=== PATIENT | male | born 1985 | race Two or more races ===

== ENCOUNTER 2025-08-18 15:42 | Emergency (ER) | payer MEDICAID, OTHER ==
[~2025-08-18] VITALS: Ht 172.7 cm; Wt 181.8 kg
[2025-08-18 16:30] VITALS: BP 124/67; PULSE 100; RESP 20; TEMP 97.6; O2SAT 99
[2025-08-18] MEDS ORDERED: SODIUM CHLORIDE 0.9% 1,000 ML IV ONE (16:45)
--- NOTE | 2025-08-18 17:04 | DVH ---
CHEST RADIOGRAPH Indication: Shortness of breath Technique: Single frontal view of the chest was obtained COMPARISON: None FINDINGS: Lines and Tubes: None Lungs: Low lung volumes. Congestion. Pleura: No effusion. No pneumothorax. Cardiomediastinal contours: Cardiomegaly. Bones: Unremarkable IMPRESSION: Cardiomegaly and pulmonary vascular congestion.
--- NOTE | 2025-08-18 17:32 | ED.PDOC ---
History of present illness HPI Comments This patient is a severely morbidly obese 40-year-old male who arrives [facility] due to complaints of hyperglycemia. Patient arrives via EMS with information of a 450+ blood glucose. Patient has a history of psychosis that appears to be bipolar schizophrenia. Patient denies any fever nausea or vomiting. Patient was tachycardic at arrival. Initial chief complaint included SI, but when I inquired as to the patient's desire to harm himself, patient denied any SI or HI. 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 Allergies: Coded Allergies: NO KNOWN ALLERGIES (Unverified , 08/18/25) Information Source: Patient, Emergency Med Personnel Mode of Arrival: EMS Timing: Hours Duration: Since onset Prehospital treatment: None [place]: None History of: Diabetes, Other (Psychosis which appears to be bipolar schizophrenia) Modifying factors: Nothing Associated signs and symptoms: None Past Medical History PAST MEDICAL HISTORY: DM, Schizophrenia Surgical History: Denies all surgeries Family History Family History: Reviewed,noncontributory to illness, No family hx of Cancer, No family hx of DM, No family hx of Heart ayden, No family hx of HTN, No family hx ofKidney ayden, No family hx of Liver ayden, No family hx of Lung ayden, No family hx of Stroke Social History Smoker: Non-Smoker Alcohol: Denies ETOH Use Drugs: Denies Drug Use Lives In: Assisted Care Constitutional: denies: chills, diaphoresis, fatigue, fever, malaise, sweats, weakness, others EENTM: denies: blurred vision, double vision, ear bleeding, ear discharge, ear drainage, ear pain, ear ringing, eye pain, eye redness, hearing loss, mouth p ain, mouth swelling, nasal discharge, nose bleeding, nose congestion, nose pain, photophobia, tearing, throat pain, throat swelling, voice changes, others Respiratory: denies: cough, hemoptysis, orthopnea, SOB at rest, shortness of br eath, SOB with excertion, stridor, wheezing, others Cardiovascular: denies: chest pain, dizzy spells, diaphoresis, Dyspnea on exertion, edema, irregular heart beat, left arm pain, lightheadedness, palpitations, PND, syncope, others Gastrointestinal: denies: abdomen distended, abdominal pain, blood streaked bowels, constipated, diarrhea, dysphagia, difficulty swallowing, hematemesis, melena, nausea, poor appetite, poor fluid intake, rectal bleeding, rectal pain, vomiting, others Genitourinary: denies: burning, dysuria, flank pain, frequency, hematuria, incontinence, penile discharge, penile sore, pain, testicle pain, testicle swelling, urgency, others Neurological: denies: dizziness, fainting, headache, left sided numbness, left sided weakness, numbness, paresthesia, pre-existing deficit, right sided numbness, right sided weakness, seizure, speech problems, tingling, tremors, weakness, others Musculoskeletal: denies: back pain, gout, joint pain, joint swelling, muscle pain, muscle stiffness, neck pain, others Integumetry: denies: bruises, change in color, change in hair/nails, dryness, laceration, lesions, lumps, rash, wounds, others Allergic/Immunocompromised: denies: Difficulty Healing, Frequent Infections, Hives, Itching, others Hematologic/Lymphatic: denies: anemia, blood clots, easy bleeding, easy bruising, swollen glands, others Endocrine: denies: excessive hunger, excessive sweating, excessive thirst, excessive urination, flushing, intolerance to cold, intolerance to heat, unexplained weight gain, unexplained weight loss, others Psychiatric: denies: anxiety, bipolar disorder, depression, hopeless, panic disorder, schizophrenia, sleepless, suicidal, others Unable to Obtain due to: Other (Patient has a history of psychosis) Physical Exam General Appearance: No Apparent Distress (Patient did not appear to be in distress at time of evaluation.), Obese HEENT: Normal ENT Inspection, Pharynx Normal, TMs Normal Neck: Full Range of Motion, Non-Tender, Normal, Normal Inspection Respiratory: Chest Non-Tender, Lungs Clear, No Accessory Muscle Use, No Respiratory Distress, Normal Breath Sounds Cardiovascular: No Edema, No JVD, No Murmur, No Gallop, Normal Peripheral Pulses, Regular Rate/Rhythm Breast Exam: Deferred Gastrointestinal: No Organomegaly, Non Tender, No Pulsatile Mass, Normal Bowel Sounds, Soft Genitalia: Deferred Pelvic: Deferred Rectal: Deferred Extremities: Normal capillary refill, Non-tender Neurologic: Alert Cerebellar Function: NOT DONE Reflexes: NOT DONE Skin: Dry, Normal Color, Warm Lymphatic: No Adenopathy Was a procedure done? Was a procedure done?: No Differential Diagnosis (DM) Differential Diagnosis: DKA, Electrolyte Abnormality, Hyperglycemia, Hyperosmolar State, Hypoglycemia X-Ray, Labs, Meds, VS Vital Signs Date Time Temp Pulse Resp B/P (MAP) Pulse Ox O2 Delivery O2 Flow Rate FiO2 08/18/25 15:44 98.7 116 16 112/63 99 98.7 X-Ray, Labs, Meds, VS Comment Subsequent to IV placement, patient became combative and removed his ID. Charge nurse Estelle was notified and we consulted with the patient. We attempted multiple times to contact [facility] to see if the patient had any medical decision making assignment. Without the ability to confirm any medical decision making, and the patient being combative with staff as well as denying any SI or HI, patient was allowed to leave the facility. We attempted to ascertain an AMA form prior to the patient leaving. Time of 1ST Reevaluation: 17:30 Reevaluation 1ST: Unchanged Consultation: PCP Patient Education/Counseling: Diagnosis, Treatment Family Education/Counseling: Diagnosis, Treatment SEPSIS Sepsis Screen Date sepsis recognized/suspect: Aug 18, 2025 Time Sepsis recognized/suspect: 1543 Recent Procedure: No On Antibiotic Therapy: No Respiratory Rate >20: No Heart Rate >90: Yes Temp<36 C (96.8 F) or >38.3 C: No SBP <90 or MAP <65 mmHG: No New Acute Mental Status Change: No Is the patient on CPAP, BIPAP,: No Physician Orders Troponin-I Hs (08/18/25 16:36) Complete Blood Count (08/18/25 16:36) B-Type Natriuretic Peptide (08/18/25 16:36) Chest Portable (08/18/25 16:36) Urinalysis (08/18/25 16:36) Basic Metabolic Panel (08/18/25 16:36) Heplock Iv (08/18/25 16:36) Electrocardigram (08/18/25 16:36) Troponin-I Hs (08/18/25 17:36) Troponin-I Hs (08/18/25 19:36) Continuous Ekg Monitoring 08,12,16,20,00,04 (08/18/25 16:36) Sodium Chloride 0.9% (08/18/25 16:45) Accucheck (08/18/25 16:36) Vital Signs Date Time Temp Pulse Resp B/P (MAP) Pulse Ox O2 Delivery O2 Flow Rate FiO2 08/18/25 15:44 98.7 116 16 112/63 99 98.7 Departure 1 Departure Time of Disposition: 17:31 Impression: Primary Impression: Hyperglycemia due to diabetes mellitus Disposition: LEFT AGAINST MEDICAL ADVICE Condition: Poor Discharged With: Self Critical Care Note Critical Care Time?: No Stability Stability form required: No Heart Score Heart Score: Heart Score Response (Comments) Value History N/A 0 EKG N/A 0 Age N/A 0 Risk Factors N/A 0 Troponin N/A 0 Total 0 EBER COUCH PAC Aug 18, 2025 17:32
== END 2025-08-18 17:27 | disposition left against medical advice (07) ==
LOC: ER 15:42 → EDBD 15:42 → ER 17:27
DX: E11.65 Type 2 diabetes mellitus with hyperglycemia (principal); F20.9 Schizophrenia, unspecified; E66.01 Morbid (severe) obesity due to excess calories; Z68.44 Body mass index [BMI] 60.0-69.9, adult
CPT/HCPCS: 71045; 82947

== ENCOUNTER 2025-08-27 22:39 | Emergency (ER) | payer MEDICAID ==
[~2025-08-27] VITALS: Ht 172.7 cm; Wt 183.0 kg
[2025-08-27 22:39] VITALS: BP 136/83; PULSE 123; RESP 20; TEMP 98.2; O2SAT 99
[2025-08-28 01:50] LABS: Anion Gap 10 (5-15); Carbon Dioxide 26 mmol/L (20-31); Chloride 100 mmol/L (98-107); Hematocrit 38.9 % (41.0-53.0); Hemoglobin 12.4 g/dL (13.5-17.5); Mean Corpuscular Hemoglobin 25.6 pg (28.0-32.0); Mean Corpuscular Volume 79.9 fL (80.0-100.0); Nucleated Red Blood Cells % 0.1 %; Potassium 4.2 mmol/L (3.5-5.1); Sodium 136 mmol/L (136-145)
[2025-08-28 01:51] LABS: Calcium 9.3 mg/dL (8.7-10.4)
[2025-08-28 01:56] LABS: BUN/Creatinine Ratio 6.8 (10.0-20.0)
[2025-08-28 01:58] LABS: Blood Urea Nitrogen 6 mg/dL (9-23); Glucose 289 mg/dL (74-106)
[2025-08-28] MEDS ORDERED: METF-372 PO (02:29)
--- NOTE | 2025-08-28 02:41 | ED.PDOC ---
History of Present Illness HPI Comments 40 y/o M is BIBA for c/c of cold exposure. Per EMS personnel report, patient is a resident of [facility] who, recently, left and was found outside a [employer] shopping center, this morning. Staff at [employer] called EMS, due to patient soliciting and endorsing on being cold. Significant history of DM, mental delay, mental health issues, and noncompliance. Chief Complaint: Cold Exposure Time Seen by MD: 23:50 Primary Care Provider: Unknown Reviewed Notes: Nurses Notes, Data Entry Email Processor Notes, Medications, Allergies Allergies: Coded Allergies: NO KNOWN ALLERGIES (Unverified , 08/18/25) Home Meds Active Scripts Metformin Hydrochloride (Metformin Hcl) 1,000 Mg Tab, 1 TAB PO BID for 90 Days, #180 TAB 1 Refill Prov:ROHIT ARSHAD MD 08/28/25 Information Source: Patient, Emergency Med Personnel Mode of Arrival: EMS Severity: Moderate Timing: Hours Duration: Since onset Prehospital treatment: None Past Medical History PAST MEDICAL HISTORY: DM, Schizophrenia Surgical History: Denies all surgeries Family History Family History: Reviewed,noncontributory to illness, No family hx of Cancer, No family hx of DM, No family hx of Heart ayden, No family hx of HTN, No family hx ofKidney ayden, No family hx of Liver ayden, No family hx of Lung ayden, No family hx of Stroke Social History Smoker: Non-Smoker Alcohol: Denies ETOH Use Drugs: Denies Drug Use Lives In: Assisted Care All Other Systems: Reviewed and Negative (As per HPI) Physical Exam General Appearance: No Apparent Distress, Obese HEENT: Normal ENT Inspection, Pharynx Normal, TMs Normal Neck: Full Range of Motion, Non-Tender, Normal, Normal Inspection Respiratory: Chest Non-Tender, Lungs Clear, No Accessory Muscle Use, No Respiratory Distress, Normal Breath Sounds Cardiovascular: No Edema, No JVD, No Murmur, No Gallop, Normal Peripheral Pulses, Regular Rate/Rhythm Breast Exam: Deferred Gastrointestinal: No Organomegaly, Non Tender, No Pulsatile Mass, Normal Bowel Sounds, Soft Genitalia: Deferred Pelvic: Deferred Rectal: Deferred Extremities: No calf tenderness, Normal capillary refill, Normal inspection, Normal range of motion, Non-tender, No pedal edema Musculoskeletal : Apperance: Normal Neurologic: Alert, piercer operator II-XII nml as Tested, Motor Weakness (left arm deficits ), No Motor Deficits, Normal Affect, Normal Mood, No Sensory Deficits, Other (mentally delayed ) Cerebellar Function: Normal Reflexes: Normal Skin: Dry, Normal Color, Warm Lymphatic: No Adenopathy Was a procedure done? Was a procedure done?: No Differential Dx Considerations may include: cold exposure, schizoaffective disorder, among others X-Ray, Labs, Meds, VS Vital Signs Date Time Temp Pulse Resp B/P (MAP) Pulse Ox O2 Delivery O2 Flow Rate FiO2 08/27/25 22:39 98.2 123 20 136/83 99 98.2 Lab Test 08/28/25 01:25 Range/Units White Blood Count 8.4 4.4-10.8 10^3/uL Red Blood Count 4.86 4.5-5.90 10^6/uL Hemoglobin 12.4 L 13.5-17.5 g/dL Hematocrit 38.9 L 41.0-53.0 % Mean Corpuscular Volume 79.9 L 80.0-100.0 fL Mean Corpuscular Hemoglobin 25.6 L 28.0-32.0 pg Mean Corpuscular Hemoglobin Concent 32.0 32.0-36.0 g/dL Red Cell Distribution Width 15.6 H 11.8-14.3 % Platelet Count 235 140-450 10^3/uL Mean Platelet Volume 8.2 6.9-10.8 fL Neutrophils (%) (Auto) 65.3 37.0-80.0 % Lymphocytes (%) (Auto) 25.2 10.0-50.0 % Monocytes (%) (Auto) 9.0 0.0-12.0 % Eosinophils (%) (Auto) 0.1 0.0-7.0 % Basophils (%) (Auto) 0.4 0.0-2.0 % Neutrophils # (Auto) 5.5 1.6-8.6 10 ^3/uL Lymphocytes # (Auto) 2.1 0.4-5.4 10 ^3/uL Monocytes # (Auto) 0.8 0-1.3 10 ^3/uL Eosinophils # (Auto) 0 0-0.8 10 ^3/uL Basophils # (Auto) 0 0-0.2 10 ^3/uL Nucleated Red Blood Cells 0.1 % Sodium Level 136 136-145 mmol/L Potassium Level 4.2 3.5-5.1 mmol/L Chloride Level 100 98-107 mmol/L Carbon Dioxide Level 26 20-31 mmol/L Anion Gap 10 5-15 Blood Urea Nitrogen 6 L 9-23 mg/dL Creatinine 0.88 0.700-1.30 mg/dL Glomerular Filtration Rate Calc 111 >90 mL/min BUN/Creatinine Ratio 6.8 L 10.0-20.0 Serum Glucose 289 H 74-106 mg/dL Calcium Level 9.3 8.7-10.4 mg/dL Time of 1ST Reevaluation: 01:20 Reevaluation 1ST: Unchanged Patient Education/Counseling: Diagnosis, Treatment, Need For Follow Up Family Education/Counseling: No Family Present SEPSIS Sepsis Screen Vital Signs Date Time Temp Pulse Resp B/P (MAP) Pulse Ox O2 Delivery O2 Flow Rate FiO2 08/27/25 22:39 98.2 123 20 136/83 99 98.2 Laboratory Tests Test 08/28/25 01:25 White Blood Count 8.4 10^3/uL (4.4-10.8) Departure 1 Departure Time of Disposition: 03:30 Impression: Primary Impression: Hyperglycemia due to diabetes mellitus Disposition: 01 HOME / SELF CARE / HOMELESS Condition: Stable e-Prescriptions Metformin Hydrochloride (Metformin Hcl) 1,000 Mg Tab 1 TAB PO BID for 90 Days, #180 TAB 1 Refill Prov: ROHIT ARSHAD MD 08/28/25 Discharged With: Self Critical Care Note Critical Care Time?: No Stability Stability form required: No Heart Score Heart Score: Heart Score Response (Comments) Value History N/A 0 EKG N/A 0 Age N/A 0 Risk Factors N/A 0 Troponin N/A 0 Total 0 I personally scribed for ROHIT ARSHAD MD ([email or web address]) on 08/28/25 at 02:41. Electronically submitted by Moses Modi ([email or web address]). ROHIT ARSHAD MD Aug 28, 2025 02:41
== END 2025-08-28 03:09 | disposition home or self-care (01) ==
LOC: EDBD 22:39 → ER 22:39
DX: E11.65 Type 2 diabetes mellitus with hyperglycemia (principal); F20.9 Schizophrenia, unspecified; Z79.84 Long term (current) use of oral hypoglycemic drugs
CPT/HCPCS: 36415; 80048; 85025